=== PATIENT | female | born 1945 | race Caucasian/White ===

== ENCOUNTER → 2016-12-23 | Outpatient (CLI) | payer OTHER | LOC: FIMAGING 12:52 | DX: Z12.31 Encounter for screening mammogram for malignant neoplasm of breast (principal) | CPT/HCPCS: G0202 ==

== ENCOUNTER → 2017-02-04 | Outpatient (CLI) | payer OTHER | LOC: BMCIMAGING 12:49 | PROVIDERS: ATTEND Nurse Practitioner Adult Health | DX: R06.02 Shortness of breath (principal); R53.83 Other fatigue ==

== ENCOUNTER → 2017-02-20 | Outpatient (CLI) | payer OTHER ==
[~2017-02-20] MED LIST: IOPAMIDOL (ISOVUE-300) 100 ML BTL ONE
== END ==
LOC: FIMAGING 13:53
PROVIDERS: ATTEND Internal Medicine
DX: R68.81 Early satiety (principal); R11.0 Nausea
CPT/HCPCS: 74160; Q9967

== ENCOUNTER → 2017-12-25 | Outpatient (CLI) | payer OTHER | LOC: FIMAGING 11:28 | PROVIDERS: ATTEND Internal Medicine | DX: Z12.31 Encounter for screening mammogram for malignant neoplasm of breast (principal) ==

== ENCOUNTER 2018-06-08 11:23 | Emergency (ER) | payer OTHER ==
[2018-06-08 12:16] LABS: PLATELET COUNT 266 10^3/uL (150-400)
--- NOTE | 2018-06-08 13:33 | EDPHY ---
H & P Stated Complaint: SOB Time Seen by Provider: 06/08/18 12:54 HPI/ROS: CHIEF COMPLAINT: JUAN, rapid heart rate, nausea; feels short of breath with minimal exertion and as if she might faint HISTORY OF PRESENT ILLNESS: This is a generally healthy 73-year-old female who presents with the symptoms listed above--the symptoms began after she was started on a prednisone taper as treatment for new onset sciatica. Six days ago she was started on 60 mg of prednisone. She discontinued the prednisone yesterday, taking 20 mg yesterday morning. She stopped this medication after speaking with her physician about the above symptoms. She has had shakiness, nausea, intermittent headache, some presyncopal sensations, and an intermittent rapid heart rate. She also notes that she seem short of breath when moving about. She has not had chest pain. No fever or cough. She leads an active lifestyle and hikes regularly. She was diagnosed with sciatica last week in the office of her orthopedist. She developed right leg pain after hiking 6 days ago--this prompted her to see her orthopedist. She had some plain films done, she thinks her hip and/or her back or x-rayed. An MRI is scheduled for tomorrow. As above, she was started on prednisone. She is also taking gabapentin 600 mg three times daily. She has taken this in the past for her restless legs but this is an increase in her dosage. She took 1 dose of indomethacin today. She has had no bowel or bladder difficulties. She has not been aware of any weakness. She notices some numbness and tingling involving her right foot and right ankle REVIEW OF SYSTEMS: A ten system review of systems was performed and is negative with the exception of the items mentioned in the HPI. Past medical history: 1. Restless legs syndrome 2. GERD 3. Hyperlipidemia 4. Osteoarthritis Past surgical history: 1. Ankle fracture sling 2. MCP joint replacement right hand 3. Cataract surgery Social history: She is . She is retired. No tobacco use. General Appearance: Alert. Vital signs reviewed. 162/103. Eyes: Pupils equal and round, no conjunctival injection, no discharge. Anicteric. ENT, Mouth: Mucous membranes are moist, no oropharyngeal erythema or edema. Neck: No lymphadenopathy, supple. Respiratory: Lungs are clear to auscultation; no wheezes, rales, or rhonchi. Cardiovascular: Regular rate and rhythm; no murmur, rub, or gallop. Gastrointestinal: Abdomen is soft and nontender, no masses or organomegaly, bowel sounds normal. Skin: Warm and dry, no rashes on exposed skin, normal color. Back: Nontender to palpation over the thoracolumbar spine. No CVAT. Extremities: No lower extremity edema, no calf tenderness or swelling. Neurological: Alert and oriented. Moving all four extremities easily and equally. KAYLYN L. EOMI expression symmetric. Strength is 5 over 5 bilaterally with testing of all major motor groups in the lower extremities; except for 4/ 5 EHL on the right. Sensation is intact to light touch over all 4 extremities except for some diminution in the right webspace of her foot. Deep tendon reflexes are 2+ in the knees bilaterally and absent in the ankles bilaterally. Gait is normal. accurately. Psychiatric: Normal affect. - Personal History Current Tetanus/Diphtheria Vaccine: Yes - Medical/Surgical History Hx Asthma: No Hx Chronic Respiratory Disease: No Hx Diabetes: No Hx Cardiac Disease: No Hx Renal Disease: No Hx Cirrhosis: No Hx Alcoholism: No Other PMH: sciatica - Social History Smoking Status: Never smoked Constitutional: Initial Vital Signs Temperature (C) 36.4 C 06/08/18 11:28 Heart Rate 89 06/08/18 11:28 Respiratory Rate 18 06/08/18 11:28 Blood Pressure 162/103 H 06/08/18 11:28 O2 Sat (%) 99 06/08/18 11:28 O2 Delivery Mode Room Air Allergies/Adverse Reactions: Penicillins Adverse Reaction (Intermediate, Verified 06/08/18 11:31) Home Medications: Medication Instructions Recorded Carbidopa-Levo 08/26/10 PRILOSEC 08/26/10 SIMVASTATIN 08/26/10 oxyCODONE/APAP 5/325 [Percocet 1 tab PO Q6 #15 tab 08/26/10 5/325] Medical Decision Making - Diagnostics EKG Interpretation: 12 lead EKG is interpreted in [place] by emergency department physician. Sinus rhythm rate 72. No acute ischemic changes. ED Course/Re-evaluation: CBC, chemistries, troponin, EKG reviewed. Nothing to suggest ACS. My initial and continued impression is that her symptoms are secondary to prednisone use. She has discontinued this drug and I expect that her symptoms will slowly resolve. We reviewed the danger signs that should prompt her to be re-evaluated urgently. I do not suspect infection. I do not suspect PE, pneumonia, pneumothorax, CHF or other process that might cause shortness of breath. She does appear to have a lumbar radiculopathy and is having an MRI tomorrow. We reviewed danger signs re: radiculopathy that should prompt rapid evaluation. - Data Points Laboratory Results: Laboratory Results 06/08/18 12:05 06/08/18 12:05 Point of Care Test Results: Chemistry 06/08/18 12:02 POC Troponin I 0.01 ng/mL ng/mL (0.00-0.08) Departure - Departure Disposition: Home, Routine, Self-Care Clinical Impression: Medication side effects Condition: Good Instructions: Hypertension (ED) Additional Instructions: I think that all of the symptoms you are experiencing are related to the prednisone that you have been taking. As you have done, stop this medication. The side effects will wear off in a day or 2. Continue the gabapentin and the indomethacin. If you develop significant right leg weakness or trouble controlling your bowels or your bladder you should be seen again immediately. Be sure that you get the MRI scan that is scheduled for tomorrow. I am giving you some information about high blood pressure. I do not think that this is going to be an ongoing problem for you. Be sure that you have Dr. Skye Valle check your blood pressure again within the month. Referrals: Skye Valle MD [Primary Care Provider] - As per Instructions
[2018-06-08 14:51] VITALS: BP 127/93
--- NOTE | 2018-06-08 15:55 | CPEKG ---
Test Reason : OPEN Blood Pressure : / mmHG Vent. Rate : 072 BPM Atrial Rate : 072 BPM P-R Int : 144 ms QRS Dur : 090 ms QT Int : 416 ms P-R-T Axes : 065 054 036 degrees QTc Int : 456 ms Sinus rhythm Minimal ST elevation, anterior leads Confirmed by Bia Orellana ([id number]) on 06/08/2018 3:54:37 PM Referred By: Confirmed By:Bia Orellana
== END 2018-06-08 14:49 | disposition home or self-care (01) ==
DX: R06.02 Shortness of breath (principal); T38.0X5A Adverse effect of glucocorticoids and synthetic analogues, initial encounter
CPT/HCPCS: 84484-PO

== ENCOUNTER 2018-07-06 17:00 | Emergency (ER) | payer OTHER ==
--- NOTE | 2018-07-06 17:13 | EDPHY ---
HPI/HX/ROS/PE/MDM Narrative: CHIEF COMPLAINT: Constipation HISTORY OF PRESENT ILLNESS: This is a 73-year-old female presents emergency department reporting that she has not had a bowel movement in about 4 days. She tried a suppository last night with no relief. She also reports that she feels she may have a rectal prolapse. Of note, the patient recently was on a prednisone dose for radiculopathy. She is concerned that the prednisone may have led to the development of her constipation. No significant abdominal discomfort, no vomiting, no distension, no flank pain, no urinary complaints. REVIEW OF SYSTEMS: A comprehensive 10 system review of systems was reviewed and is negative aside from elements mentioned in the history of present illness and medical decision making. PAST MEDICAL HISTORY: 1. Restless legs syndrome 2. GERD 3. Hyperlipidemia 4. Osteoarthritis 5. Ankle fracture sling 6. MCP joint replacement right hand 7. Cataract surgery SOCIAL HISTORY: . Retired. Lives in [place]. VITAL SIGNS: Reviewed by me GENERAL: Well-developed, well-nourished, resting comfortably in no respiratory distress. HEENT: Atraumatic. Eyes: No icterus, no injection. Mouth: moist mucous membranes. No erythema or lesions. Neck: supple with no adenopathy. LUNGS: Clear to auscultation bilaterally, no wheezes, rhonchi or rales. CARDIAC: Regular rate and rhythm, no rubs, murmurs or gallops. ABDOMEN: Soft, nontender, nondistended, bowel sounds normal. BACK: No CVA tenderness. RECTAL: Extensive external hemorrhoids are present circumferentially around the anus. Large volume of soft stool is palpable in the rectal vault. No gross blood. No obvious prolapse when the patient bears down. EXTREMITIES: No trauma. No edema. Range of motion is normal throughout. NEURO: Alert and oriented, grossly nonfocal. SKIN: Warm and dry, no rash. PSYCHIATRIC: Normal mentation, no agitation. Portions of this note were transcribed by a medical territory manager. I personally performed a history, physical exam, medical decision making, and confirmed accuracy of information the transcribed note. ED Course: Patient IV placed, received a L of fluid, and CBC and chemistries checked. These were largely unremarkable. X-ray demonstrates significant large ball of stool present in the rectum. The patient had a enema administered. She was able hold enema for approximately 40 min and had some small stool output. Given her extensive hemorrhoids do not believe the patient will be able to tolerate digital disimpaction. She was discharged home with instructions to use magnesium citrate as a colonic. We discussed reasons to return to the emergency department, discussed bowel program, and we discussed to follow up with Dr. Hamilton for consideration of treatment of her hemorrhoids and possible rectal prolapse. At discharge, the patient's blood pressure was noted to be elevated. 152/101. This is similar to patient's blood pressure at admission. Patient is quite concerned regarding this elevated blood pressure states that it never runs this high. She informed the nursing staff that she would not be comfortable being discharged with the elevated blood pressure. EKG was obtained which demonstrates normal sinus rhythm. Patient was given 0.5 mg of Ativan. Nursing staff started the patient on magnesium citrate to address her constipation. Is my understanding that the patient then elected to leave the emergency department after starting on the magnesium citrate. When I went to evaluate her again to see how low her blood pressure was as well as to evaluate her after beginning the magnesium citrate, she had left the emergency department. MDM: After obtaining the patient's history and performing an examination, differential diagnosis considered included but was not limited to the constipation, bowel obstruction, obstipation, hemorrhoids, rectal prolapse, electrolyte abnormalities. - Data Points Imaging Results: Imaging Impressions Abdomen X-Ray 07/06/18 17:28 Impression: Severe constipation. Cannot exclude a rectal fecal impaction. Imaging: I viewed and interpreted images myself Laboratory Results: Laboratory Results 07/06/18 17:45 07/06/18 17:45 07/06/18 07/06/18 07/06/18 17:45 17:45 17:00 WBC 7.76 10^3/uL 10^3/uL (3.80-9.50) RBC 3.86 10^6/uL L 10^6/uL (4.18-5.33) Hgb 12.5 g/dL L g/dL (12.6-16.3) Hct 36.3 % L % (38.0-47.0) MCV 94.0 fL fL (81.5-99.8) MCH 32.4 pg pg (27.9-34.1) MCHC 34.4 g/dL g/dL (32.4-36.7) RDW 12.9 % % (11.5-15.2) Plt Count 251 10^3/uL 10^3/uL (150-400) MPV 9.1 fL fL (8.7-11.7) Neut % (Auto) 62.0 % % (39.3-74.2) Lymph % (Auto) 29.0 % % (15.0-45.0) Mclean % (Auto) 6.8 % % (4.5-13.0) Eos % (Auto) 1.5 % % (0.6-7.6) Baso % (Auto) 0.4 % % (0.3-1.7) Nucleat RBC Rel Count 0.0 % % (0.0-0.2) Absolute Neuts (auto) 4.81 10^3/uL 10^3/uL (1.70-6.50) Absolute Lymphs (auto) 2.25 10^3/uL 10^3/uL (1.00-3.00) Absolute Monos (auto) 0.53 10^3/uL 10^3/uL (0.30-0.80) Absolute Eos (auto) 0.12 10^3/uL 10^3/uL (0.03-0.40) Absolute Basos (auto) 0.03 10^3/uL 10^3/uL (0.02-0.10) Absolute Nucleated RBC 0.00 10^3/uL 10^3/uL (0-0.01) Immature Gran % 0.3 % % (0.0-1.1) Immature Gran # 0.02 10^3/uL 10^3/uL (0.00-0.10) Sodium 137 mEq/L mEq/L (135-145) Potassium 4.1 mEq/L mEq/L (3.3-5.0) Chloride 102 mEq/L mEq/L (97-110) Carbon Dioxide 25 mEq/l mEq/l (22-31) Anion Gap 10 mEq/L mEq/L (6-14) BUN 17 mg/dL mg/dL (7-23) Creatinine 0.7 mg/dL mg/dL (0.6-1.0) Estimated GFR > 60 Glucose 100 mg/dL mg/dL (70-100) Calcium 9.8 mg/dL mg/dL (8.5-10.4) Stool Occult Bld Scrn NEGATIVE (NEGATIVE) Medications Given: Discontinued Medications Sodium Chloride (Ns) 1,000 mls @ 0 mls/hr IV EDNOW ONE; Wide Open PRN Reason: Protocol Stop: 07/06/18 17:28 Last Admin: 07/06/18 18:02 Dose: 1,000 mls Lorazepam (Ativan) 0.5 mg PO EDNOW ONE Stop: 07/06/18 19:49 Last Admin: 07/06/18 19:56 Dose: 0.5 mg Magnesium Citrate (Magnesium Citrate) 300 ml PO ONCE ONE Stop: 07/06/18 19:52 Last Admin: 07/06/18 19:52 Dose: 150 ml General Time Seen by Provider: 07/06/18 17:08 Initial Vital Signs: Initial Vital Signs Temperature (C) 37.1 C 07/06/18 17:02 Heart Rate 88 07/06/18 17:02 Respiratory Rate 18 07/06/18 17:02 Blood Pressure 155/101 H 07/06/18 17:02 O2 Sat (%) 95 07/06/18 17:02 O2 Delivery Mode Room Air Allergies/Adverse Reactions: Penicillins Adverse Reaction (Intermediate, Verified 07/06/18 17:02) Home Medications: Medication Instructions Recorded Carbidopa-Levo 08/26/10 PRILOSEC 08/26/10 SIMVASTATIN 08/26/10 oxyCODONE/APAP 5/325 [Percocet 1 tab PO Q6 #15 tab 08/26/10 5/325] Departure - Departure Disposition: Home, Routine, Self-Care Clinical Impression: Fecal impaction in rectum, External hemorrhoids, Possible rectal prolapse Condition: Good Instructions: Constipation (ED), Fecal Impaction (ED) Additional Instructions: For your constipation I recommend the following: Obtain a bottle magnesium citrate. Mix half the bottle with 16 oz of Gatorade. Drink this over 15 min. Wait 4 hrs. If you do not have significant stool output, then please drink the remaining half of the magnesium citrate with an additional 16 oz of Gatorade. This should help clear any remaining stool in the upper regions of the colon. Please drink plenty of water and get plenty of rest. Eat a well-balanced diet. Please use a hemorrhoid cream with hydrocortisone on your external hemorrhoids. Please follow up with Dr. Hamilton for further evaluation of your hemorrhoids and your possible rectal prolapse. Referrals: Skye Valle MD [Primary Care Provider] - As per Instructions Dhaval Hamilton MD [Medical Doctor] - As per Instructions
[2018-07-06] MEDS ORDERED: NS 1,000 ML IV ONE (17:27)
[2018-07-06] MEDS ORDERED: LIDOCAINE 2% JELLY 20 ML (UROJECT) ONE (17:34)
[2018-07-06 17:57] LABS: PLATELET COUNT 251 10^3/uL (150-400)
[2018-07-06] MEDS ORDERED: MAGNESIUM CITRATE 300 ML BOTTLE ONE (19:48)
[2018-07-06] MEDS ORDERED: LORazepam 1 MG TAB PO ONE (19:48)
[2018-07-06] MEDS ORDERED: MAGNESIUM CITRATE 300 ML BOTTLE PO ONE (19:51)
[2018-07-06 19:59] VITALS: BP 152/101
== END 2018-07-06 20:27 | disposition home or self-care (01) ==
DX: K59.00 Constipation, unspecified (principal); K64.8 Other hemorrhoids; E86.9 Volume depletion, unspecified

== ENCOUNTER → 2018-12-30 | Outpatient (CLI) | payer OTHER | LOC: FIMAGING 14:18 | PROVIDERS: ATTEND Internal Medicine | DX: Z13.820 Encounter for screening for osteoporosis (principal); M85.89 Other specified disorders of bone density and structure, multiple sites ==

== ENCOUNTER → 2019-03-07 | Outpatient (CLI) | payer OTHER | LOC: BMCIMAGING 14:43 ==